=== PATIENT | female | born 1975 | race Caucasian/White ===

== ENCOUNTER 2017-07-25 06:44 | Day surgery (SDC) | payer OTHER ==
[2017-07-25] MEDS ORDERED: GELATIN SIZE 100 SPONGE (10:04)
[2017-07-25] MEDS ORDERED: ROCURONIUM 50 MG INJ (10:26)
[2017-07-25] MEDS ORDERED: CEFAZOLIN 1 GM INJ (10:26)
[2017-07-25] MEDS ORDERED: ONDANSETRON 4 MG INJ (10:26)
[2017-07-25] MEDS ORDERED: PROPOFOL 20 ML (10:26)
[2017-07-25] MEDS ORDERED: GLYCOPYRROLATE 0.4 MG INJ (10:26)
[2017-07-25] MEDS ORDERED: DEXAMETHASONE 4 MG/ML 1 ML INJ (10:26)
[2017-07-25] MEDS ORDERED: NEOSTIGMINE 3 MG/3 ML SYRINGE (10:26)
[2017-07-25] MEDS ORDERED: MIDAZOLAM 1 MG/ML 2 ML INJ (10:26)
[2017-07-25] MEDS: BUPIVACAINE 0.5% (SDV) 30 ML INJ (11:52)
[2017-07-25] MEDS: LIDOCAINE 1%/EPI 30 ML INJ (11:53)
[2017-07-25] MEDS: POLYMYXIN/BACITRACIN 1L IRRIG IRR (11:53)
[2017-07-25] MEDS: METHYLPREDNISOLONE ACET 80 MG/ML 1 ML (12:48)
[2017-07-25] MEDS ORDERED: SUGAMMADEX SODIUM 200 MG/2 ML VIAL IV (12:49)
[2017-07-25] MEDS ORDERED: HYDROmorphONE (0.2 MG/ML) 10ML SYG IV (13:07)
[2017-07-25] MEDS: THROMBIN 5000 UNIT VIAL (13:16)
[2017-07-25] MEDS ORDERED: FENTAnyl 50 MCG/ML VIAL IV (13:30)
[2017-07-25] MEDS ORDERED: HYDROmorphONE 0.5 MG/0.5 ML SYG IV (13:30)
[2017-07-25] MEDS: HYDROmorphONE (0.2 MG/ML) 10ML SYG IV ×3 (13:38→13:51)
[2017-07-25] MEDS: FENTAnyl 50 MCG/ML VIAL IV (13:50)
== END 2017-07-25 15:50 | disposition home or self-care (01) ==
LOC: REC 06:44 → SDS 06:44
DX: M51.27 Other intervertebral disc displacement, lumbosacral region (principal); M48.07 Spinal stenosis, lumbosacral region; I10 Essential (primary) hypertension; J45.909 Unspecified asthma, uncomplicated
CPT/HCPCS: 63030; 72100; 84703; 93005